=== PATIENT | male | born 1945 | race Caucasian/White ===

== ENCOUNTER 2019-03-19 10:33 | Inpatient (IN) | payer MEDICARE, MEDICAID ==
[2019-03-01 14:06] LABS: BASOPHILS # (AUTO) 0.1 X10'3 (0-0.2); BASOPHILS % (AUTO) 0.8 % (0-1); EOSINOPHILS # (AUTO) 0.4 X10'3 (0-0.9); HEMATOCRIT 38.8 % (42.0-52.0); HEMOGLOBIN 13.3 g/dl (14.0-17.9); LYMPHOCYTES # (AUTO) 2.1 X10'3 (1.1-4.8); MEAN CORPUSCULAR HEMOGLOBIN 28.8 PG (27.0-31.0); MEAN CORPUSCULAR HGB CONC 34.2 g/dL (33.0-36.5); MEAN CORPUSCULAR VOLUME 84.4 FL (78-98); MEAN PLATELET VOLUME 9.4 FL (7.4-10.4); MONOCYTES # (AUTO) 0.9 X10'3 (0-0.9); MONOCYTES % (AUTO) 9.9 % (2-12); NEUTROPHILS # (AUTO) 5.4 X10'3 (1.8-7.7); NEUTROPHILS % (AUTO) 61.3 % (42-75); PLATELET COUNT 172 X10'3 (140-440); RED CELL DISTRIBUTION WIDTH 14.1 % (11.5-14.5); WHITE BLOOD COUNT 8.9 X10'3 (4.5-11.0)
[2019-03-01 14:14] LABS: ALBUMIN 3.6 G/DL (3.4-5.0); ANION GAP 7 (8-16); BLOOD UREA NITROGEN 28 MG/DL (7-18); BUN/CREATININE RATIO 20.1 (5.4-32.0); CALCIUM 8.6 MG/DL (8.5-10.1); CHLORIDE 99 MMOL/L (99-107); CREATININE 1.39 MG/DL (0.60-1.10); GLUCOSE 389 MG/DL (70-104); MAGNESIUM 1.7 MG/DL (1.5-2.4); POTASSIUM 4.2 MMOL/L (3.5-5.1); SODIUM 132 MMOL/L (135-145); TOTAL CARBON DIOXIDE 25.6 MMOL/L (24-32); eGFR 50 ML/MIN
[~2019-03-19] VITALS: Ht 195.6 cm; Wt 108.5 kg
[2019-03-19] VITALS (12 sets, daily range): BP systolic 124–193; BP diastolic 68–105
[~2019-03-19 10:33] MED LIST: AMLO2.5T2 PO; ASPI-1264 PO; CLOP75TA35 PO; GABA-532 PO; HYDR12.5 PO; INSU100I25 SQ; INSU100V36 SQ; ISOS60TA4 PO; METO25TA6 PO; MULT-1085 PO; NITR0.4T51 SL; NORCO10T PO; OMEG1CAP13 PO; PRAV80TA PO; TRAZ-251 PO; VALS320T2 PO
[2019-03-19] MEDS ORDERED: diphenhydrAMINE 25mg capsule PO PRN (10:55)
[2019-03-19 11:15] LABS: BASOPHILS # (AUTO) 0.1 X10'3 (0-0.2); BASOPHILS % (AUTO) 0.8 % (0-1); EOSINOPHILS # (AUTO) 0.3 X10'3 (0-0.9); EOSINOPHILS % (AUTO) 3.7 % (0-6); HEMATOCRIT 39.8 % (42.0-52.0); HEMOGLOBIN 13.6 g/dl (14.0-17.9); LYMPHOCYTES # (AUTO) 1.8 X10'3 (1.1-4.8); LYMPHOCYTES % (AUTO) 24.4 % (21-51); MEAN CORPUSCULAR HEMOGLOBIN 28.8 PG (27.0-31.0); MEAN CORPUSCULAR HGB CONC 34.1 g/dL (33.0-36.5); MEAN CORPUSCULAR VOLUME 84.3 FL (78-98); MONOCYTES # (AUTO) 0.6 X10'3 (0-0.9); MONOCYTES % (AUTO) 8.4 % (2-12); NEUTROPHILS # (AUTO) 4.7 X10'3 (1.8-7.7); NEUTROPHILS % (AUTO) 62.7 % (42-75); PLATELET COUNT 159 X10'3 (140-440); RED BLOOD COUNT 4.73 X10'6 (4.70-6.10); RED CELL DISTRIBUTION WIDTH 14.1 % (11.5-14.5); WHITE BLOOD COUNT 7.5 X10'3 (4.5-11.0)
[2019-03-19] MEDS ORDERED: IBUP-2417 PO (11:28)
[2019-03-19] MEDS ORDERED: AMLO5TAB PO (11:28)
[2019-03-19] MEDS ORDERED: ROSU40TA PO (11:28)
[2019-03-19] MEDS ORDERED: INSU100I29 SQ (11:28)
[2019-03-19] MEDS ORDERED: APIX5TAB3 PO (11:28)
[2019-03-19] MEDS ORDERED: LIRA0.6P2 SUBCUT (11:28)
[2019-03-19] MEDS ORDERED: ZOLP5TAB2 PO (11:28)
[2019-03-19] MEDS ORDERED: AMIO200T61 PO (11:28)
[2019-03-19] MEDS ORDERED: GLIP5TAB13 PO (11:28)
[2019-03-19 11:38] LABS: ALBUMIN 3.6 G/DL (3.4-5.0); ANION GAP 10 (8-16); BLOOD UREA NITROGEN 18 MG/DL (7-18); BUN/CREATININE RATIO 12.9 (5.4-32.0); CALCIUM 8.5 MG/DL (8.5-10.1); CHLORIDE 103 MMOL/L (99-107); GLUCOSE 354 MG/DL (70-104); MAGNESIUM 2.1 MG/DL (1.5-2.4); POTASSIUM 4.2 MMOL/L (3.5-5.1); SODIUM 136 MMOL/L (135-145); TOTAL CARBON DIOXIDE 23.4 MMOL/L (24-32); eGFR 50 ML/MIN
[2019-03-19] MEDS ORDERED: midazolam 2 mg/2 ml injection ONE ×2 (11:43→12:17)
[2019-03-19] MEDS ORDERED: LIDOcaine 1% (10mg/ml)w/preservative injection 20ml MDV ONE (11:44)
[2019-03-19] MEDS ORDERED: heparin 1,000 UNITS/NS 500ml 500 ML ONE ×2 (11:44)
[2019-03-19] MEDS ORDERED: iohexol 350 MG/ML 50ML vial IV ONE (11:44)
[2019-03-19] MEDS ORDERED: fentaNYL/PF 50MCG/1 ML 2ML syringe ONE ×2 (11:44→12:30)
[2019-03-19] MEDS ORDERED: iohexol 350MG/ML 100ml bottle IV ONE (11:44)
[2019-03-19] MEDS: normal saline 1,000 ML IV SCH ×2 (11:57→20:55)
[2019-03-19] MEDS ORDERED: proCHLORperazine 10 MG/2 ml inj ONE (12:30)
[2019-03-19] MEDS ORDERED: HYDROcodone/acetaminophen 5mg/325mg tablet PO PRN (13:20)
[2019-03-19] MEDS ORDERED: HYDROcodone/acetaminophen 10/325mg tab PO PRN (13:20)
[2019-03-19] MEDS ORDERED: potassium Cl 2 mEq/ml inj IV ONE (14:00)
[2019-03-19] MEDS ORDERED: MESSAGE TO NURSING PO ONE ×3 (14:30)
[2019-03-19] MEDS ORDERED: insulin glargine (Lantus) pen - multi-dose SQ PRN (14:30)
[2019-03-19] MEDS ORDERED: dextrose 50%-water 50ml dispensing syringe IV PRN ×3 (14:30→15:25)
[2019-03-19] MEDS ORDERED: glucagon, human recombinant 1mg kit SUBCUT PRN (15:25)
[2019-03-19] MEDS ORDERED: MESSAGE TO PHARMACY PO ONE (15:25)
[2019-03-19] MEDS ORDERED: nitroGLYCERIN 0.4mg SUBLingual tab SL PRN (16:00)
[2019-03-19] MEDS ORDERED: zolpidem 5mg tablet PO PRN (16:00)
--- NOTE | 2019-03-19 17:00 | NUR ---
Problems reprioritized. Patient report given, questions answered & plan of care reviewed with Constantino RN, pt VSS, pt is in stable condition, R prosper menjivarg CDI, pt was transferred [facility] rm #[id number].
[2019-03-19] MEDS: normal saline 1000ml 1,000 ML IV SCH (18:00)
--- NOTE | 2019-03-19 18:15 | NUR ---
Please call [facility] unit at [phone] regarding pt Josefa, have questions regarding carotid study. Patient scheduled 1st case CABG on 03/20/19 Thank you, Jessica
--- NOTE | 2019-03-19 18:15 | NUR ---
Patient in room MED 308. I have received report from STEPHANIE Meeks and had the opportunity to ask questions and assume patient care.
[2019-03-19 18:36] LABS: HEMATOCRIT 40.6 % (42.0-52.0); HEMOGLOBIN 13.8 g/dl (14.0-17.9); MEAN CORPUSCULAR HEMOGLOBIN 28.7 PG (27.0-31.0); MEAN CORPUSCULAR VOLUME 84.3 FL (78-98); MEAN PLATELET VOLUME 9.2 FL (7.4-10.4); PLATELET COUNT 153 X10'3 (140-440); RED BLOOD COUNT 4.81 X10'6 (4.70-6.10); RED CELL DISTRIBUTION WIDTH 14.1 % (11.5-14.5)
[2019-03-19 18:49] LABS: PARTIAL THROMBOPLASTIN TIME 26 SECONDS (22-32)
--- NOTE | 2019-03-19 19:53 | NUR ---
Respiratory- patient Elisabeth Rivero needs PT eval and treat and ABGs. RT notification not popping up in interventions to send to you. Please evaluate patient. Thank you. STEPHANIE Lopez [phone]
[2019-03-19] MEDS ORDERED: metoprolol tartrate 25mg tablet PO SCH (20:00)
[2019-03-19] MEDS: metoprolol tartrate 12.5mg (1/2 tablet) PO SCH (20:25)
[2019-03-19] MEDS: gabapentin 300mg capsule PO SCH (20:26)
[2019-03-19] MEDS: mupirocin 2% ointment 22GM NS SCH (20:29)
[2019-03-19] MEDS: insulin Lispro (HumaLOG) vial - multi-dose SQ SCH ×2 (20:29→22:51)
[2019-03-19 20:45] LABS: CLARITY,URINE CLEAR (Clear); COLOR,URINE YELLOW (Yellow); GLUCOSE, URINE >=1000 mg/dl (Neg); KETONES,URINE NEGATIVE (Neg); LEUKOCYTE ESTERASE ,URINE NEGATIVE (Neg); NITRITES, URINE NEGATIVE (Neg); OCCULT BLOOD,URINE TRACE-INTACT (Neg); PROTEIN,URINE 30 mg/dl (Neg); UROBILINOGEN,URINE 0.2 E.U/dL (0.2-1.0)
[2019-03-19 20:47] LABS: UA COLLECTION TYPE VOIDED
[2019-03-19 20:54] LABS: BACTERIA,URINE NONE SEEN /HPF (Neg); MUCUS STRANDS NONE SEEN /LPF (Neg); RBC,URINE 0-2 /HPF (0-2); SQUAMOUS EPITHELIAL CELL,UR NONE SEEN /LPF (FEW); WBC,URINE 0-4 /HPF (0-4)
[2019-03-19 22:04] LABS: PLATELET FUNCTION (ADP) 168 SECONDS (63-104)
[2019-03-19 22:11] LABS: ABG BASE EXCESS -0.6 mmol/L (-2.0-3.0); ABG HCO3 22.9 mmol/L (22.0-26.0); ABG OXYGEN SATURATION 96.4 % (95-98); ABG PCO2 (T) 33.5 mmHg (35.0-45.0); ABG PH (T) 7.451 (7.350-7.450); ABG PO2 (T) 79.7 mmHg (83-108); ALLEN'S TEST Positive; FCOHb 0.5 % (0.5-1.5); FMetHb 0.3 % (0.3-1.12); FO2Hb 95.6 % (94-100); PATIENT TEMPERATURE 36.6; RESPIRATORY RATE (OBSERVED) 16 b/min; TOTAL HEMOGLOBIN 13.5 G/dl (14.0-17.9)
[2019-03-19] MEDS: insulin glargine (Lantus) pen - multi-dose SQ SCH (22:52)
[2019-03-20] VITALS (17 sets, daily range): BP systolic 93–152; BP diastolic 45–78
[2019-03-20 04:52] LABS: BASOPHILS # (AUTO) 0.1 X10'3 (0-0.2); BASOPHILS % (AUTO) 0.8 % (0-1); EOSINOPHILS # (AUTO) 0.3 X10'3 (0-0.9); HEMATOCRIT 36.2 % (42.0-52.0); HEMOGLOBIN 12.6 g/dl (14.0-17.9); LYMPHOCYTES # (AUTO) 1.7 X10'3 (1.1-4.8); LYMPHOCYTES % (AUTO) 21.4 % (21-51); MEAN CORPUSCULAR HEMOGLOBIN 29.2 PG (27.0-31.0); MEAN CORPUSCULAR HGB CONC 34.9 g/dL (33.0-36.5); MEAN CORPUSCULAR VOLUME 83.7 FL (78-98); MEAN PLATELET VOLUME 9.2 FL (7.4-10.4); MONOCYTES # (AUTO) 0.8 X10'3 (0-0.9); MONOCYTES % (AUTO) 10.8 % (2-12); NEUTROPHILS # (AUTO) 4.8 X10'3 (1.8-7.7); PLATELET COUNT 144 X10'3 (140-440); RED BLOOD COUNT 4.32 X10'6 (4.70-6.10); RED CELL DISTRIBUTION WIDTH 14.3 % (11.5-14.5); WHITE BLOOD COUNT 7.7 X10'3 (4.5-11.0)
[2019-03-20] MEDS ORDERED: ROPIVAcaine 0.5% (5mg/ml) 30ml vial ONE (05:04)
[2019-03-20] MEDS ORDERED: ceFAZolin 1000mg inj ONE ×3 (05:10→11:25)
[2019-03-20] MEDS ORDERED: LIDOcaine 1% 30ml preserv. free vial ONE (05:10)
[2019-03-20] MEDS ORDERED: epiNEPHrine 1 mg/ml inj ONE (05:10)
[2019-03-20 05:11] LABS: ALANINE AMINOTRANSFERASE 39 U/L (12-78); ALBUMIN 3.1 G/DL (3.4-5.0); ALBUMIN/GLOBULIN RATIO 0.8 (1.1-1.5); ALKALINE PHOSPHATASE 51 IU/L (46-116); ANION GAP 11 (8-16); ASPARTATE AMINO TRANSFERASE 22 U/L (10-37); BILIRUBIN,TOTAL 0.6 MG/DL (0.1-1.0); BLOOD UREA NITROGEN 17 MG/DL (7-18); CALCIUM 8.2 MG/DL (8.5-10.1); CHLORIDE 103 MMOL/L (99-107); GLUCOSE 431 MG/DL (70-104); POTASSIUM 3.8 MMOL/L (3.5-5.1); SODIUM 136 MMOL/L (135-145); TOTAL PROTEIN 6.8 G/DL (6.4-8.2); eGFR 40 ML/MIN
[2019-03-20] MEDS ORDERED: BUPIVAcaine 0.5% inj/PF 30 ML ONE (05:11)
[2019-03-20] MEDS ORDERED: cefazolin/dext.iso 2gm/100ml 100 ML IV ONE (05:30)
[2019-03-20] MEDS ORDERED: gabapentin 400mg capsule PO ONE (05:30)
[2019-03-20] MEDS ORDERED: insulin regular, human 100 UNIT in normal saline 100ml IV soln 100 ML IV SCH ×2 (05:30)
[2019-03-20] MEDS ORDERED: NUT.TX.IMPAIRED DIGEST FXN (Ensure Clear) 237 ML PO ONE (05:30)
--- NOTE | 2019-03-20 05:34 | NUR ---
Critical Blood Glucose accucheck of 418, notified Dr. Liao and Dr. Liao stated that anesthesia will treat this morning. No nursing orders given for this patient with regards to blood glucose. Verified with Dr. Liao regarding antibiotics for this patient. He stated that he does not order Vancomycin 1.5 grams. Will pass this information on to OR staff.
[2019-03-20] MEDS: mupirocin 2% ointment 22GM NS SCH ×2 (05:48→20:35)
[2019-03-20] MEDS ORDERED: famotidine 20mg tablet PO ONE (06:00)
[2019-03-20] MEDS ORDERED: LORazepam 2 mg/ml vial IV ONE (06:00)
[2019-03-20] MEDS ORDERED: insulin regular, human 10 units/0.1 ml syringe IV STA (06:15)
--- NOTE | 2019-03-20 06:15 | NUR ---
CALLED ANESTHESIOLOGIST, DR. DIOR REGARDING PATIENT'S BLOOD GLUCOSE OF 418. RECEIVED ORDERS TO GIVE 10 UNITS REGULAR INSULIN IV NOW.
--- NOTE | 2019-03-20 06:30 | NUR ---
Pt. headed to OR
--- NOTE | 2019-03-20 06:33 | NUR ---
Problems reprioritized. Patient report given, questions answered & plan of care reviewed with STEPHANIE Meeks.
[2019-03-20] MEDS ORDERED: SUFENTANIL CITRATE 50 MCG/ML 2ml ampule IV ONE (06:53)
[2019-03-20] MEDS ORDERED: midazolam 2 mg/2 ml injection ONE (06:53)
[2019-03-20] MEDS: normal saline 1,000 ML IV SCH (06:55)
[2019-03-20] MEDS ORDERED: nitroGLYCERIN in D5W 50mg/250ml (Tridil) infusion IV ONE (07:05)
[2019-03-20] MEDS ORDERED: DOPamine/D5W 400mg/250ml bag IV ONE ×2 (07:05)
[2019-03-20] MEDS ORDERED: protamine sulf. 10mg/ml inj. IV ONE (07:05)
[2019-03-20] MEDS ORDERED: isoflurane 100ml inhalation liquid IH ONE (07:05)
[2019-03-20 07:50] LABS: ABG HCO3 21.2 mmol/L (22.0-26.0); ABG OXYGEN SATURATION 99.1 % (95-98); ABG PCO2 43.3 mmHg (35.0-45.0); ABG PH 7.307 (7.350-7.450); ABG PO2 335.2 mmHg (60.0-100.0); CL (ABG) 104 mmol/L (99-107); FCOHb 0.6 % (0.5-1.5); FMetHb 0.3 % (0.3-1.12); FO2Hb 98.2 % (94-100); GLUCOSE (ABG) 258 mg/dl (70-104); IONIZED CA (ABG) 1.16 mmol/L (1.03-1.32); NA (ABG) 137 mmol/L (135-145); TOTAL HEMOGLOBIN 12.6 G/dl (14.0-17.9)
[2019-03-20] MEDS ORDERED: INSULIN DEGLUDEC 1 UNIT SQ SCH (08:00)
[2019-03-20] MEDS ORDERED: heparin 1,000 units/ml 10ml inj ONE (08:00)
[2019-03-20] MEDS: gabapentin 300mg capsule PO SCH ×2 (08:00→13:00)
[2019-03-20] MEDS ORDERED: aminocaproic acid 250 MG/1 ML inj. ONE (08:00)
[2019-03-20] MEDS: multivitamins, therapeutics tablet PO SCH (08:00)
[2019-03-20] MEDS ORDERED: atorvastatin 20mg tablet PO SCH (08:00)
[2019-03-20] MEDS: HYDROchlorothiazide 12.5mg capsule PO SCH (08:00)
[2019-03-20] MEDS ORDERED: NORepinephrine 1 mg/ml inj IV ONE (08:00)
[2019-03-20] MEDS ORDERED: amLODIPine 5mg tablet PO SCH (08:00)
[2019-03-20] MEDS ORDERED: MAGNESIUM SULFATE 4 MEQ/ML (5gm/10ml) injection ONE (08:00)
[2019-03-20] MEDS: metoprolol tartrate 12.5mg (1/2 tablet) PO SCH (08:00)
[2019-03-20] MEDS ORDERED: heparin 10,000 units/1 ML INJ ONE ×2 (08:00)
[2019-03-20] MEDS ORDERED: glipizide 5mg tablet PO SCH (08:00)
[2019-03-20] MEDS ORDERED: albumin (human) 25% 100 ML IV solution IV ONE (08:00)
[2019-03-20] MEDS ORDERED: calcium chloride 100 MG/1 ML inj IV ONE (08:00)
[2019-03-20] MEDS ORDERED: amiodarone 200mg tablet PO SCH (08:00)
[2019-03-20] MEDS ORDERED: papaverine 30 mg/ml 2ml inj. ONE (08:00)
[2019-03-20] MEDS ORDERED: methylPREDNISolone sod. succ. 500mg inj ONE (08:00)
[2019-03-20] MEDS ORDERED: sodium bicarbonate (8.4%) 1 mEq/ml syringe ONE (08:00)
[2019-03-20] MEDS ORDERED: LIDOcaine 2% (20 mg/ml) 5ml cardiac syringe ONE (08:00)
[2019-03-20] MEDS ORDERED: phenylephrine 10mg/ml inj. ONE (08:00)
[2019-03-20] MEDS ORDERED: ipratropium/albuterol 3ml nebule IH PRN (08:50)
[2019-03-20] MEDS ORDERED: propofol inj 20 ML IV ONE (08:51)
[2019-03-20] MEDS ORDERED: LIDOcaine 2% (20mg/ml) 5ml vial ONE (08:51)
[2019-03-20] MEDS ORDERED: rocuronium 10mg/ml inj IV ONE (08:51)
[2019-03-20 08:55] LABS: ABG BASE EXCESS -4.3 mmol/L (-2.0-3.0); ABG HCO3 20.8 mmol/L (22.0-26.0); ABG OXYGEN SATURATION 99.1 % (95-98); ABG PCO2 37.8 mmHg (35.0-45.0); ABG PH 7.358 (7.350-7.450); CL (ABG) 102 mmol/L (99-107); FCOHb 0.3 % (0.5-1.5); FO2Hb 98.8 % (94-100); GLUCOSE (ABG) 195 mg/dl (70-104); IONIZED CA (ABG) 1.04 mmol/L (1.03-1.32); K (ABG) 4.6 mmol/L (3.3-5.1); NA (ABG) 135 mmol/L (135-145); TOTAL HEMOGLOBIN 9.1 G/dl (14.0-17.9)
--- NOTE | 2019-03-20 09:21 | NUR ---
DM consult: Pt with hx T2DM with A1c 11.4. Pt s/p CABG x 3 today. Pt will need protein and DM educations with referral to outpatient DM class once stable prior to discharge. Pt admit with atherosclerotic CAD. Will continue to follow. Recommendations: 1) Diet advancement to CHO controlled/NCS as medically indicated 2) Protein and DM educations prior to discharge once stable 3) Monitor need for ONS with diet advancement 4) Bowel care 5) Wt per rx Addendum: 03/20/19 at [address] Amended: Links added.
[2019-03-20 09:22] LABS: ABG BASE EXCESS VENOUS -0.6 mmol/L; ABG HCO3 VENOUS 24.3 mmol/L; ABG PCO2 VENOUS 40.8 mmHg; ABG PO2 VENOUS 53.1 mmHg; CL (ABG) 102 mmol/L (99-107); FCOHb VENOUS 0.9 %; FHHb VENOUS 12.1 %; GLUCOSE (ABG) 191 mg/dl (70-104); IONIZED CA (ABG) 1.03 mmol/L (1.03-1.32); K (ABG) 3.9 mmol/L (3.3-5.1); NA (ABG) 137 mmol/L (135-145); TOTAL HEMOGLOBIN 8.9 G/dl (14.0-17.9)
[2019-03-20 09:41] LABS: ABG BASE EXCESS -0.5 mmol/L (-2.0-3.0); ABG HCO3 25.6 mmol/L (22.0-26.0); ABG OXYGEN SATURATION 99.2 % (95-98); ABG PCO2 49.3 mmHg (35.0-45.0); ABG PH 7.334 (7.350-7.450); ABG PO2 379.9 mmHg (60.0-100.0); CL (ABG) 104 mmol/L (99-107); FCOHb 0.4 % (0.5-1.5); FO2Hb 98.8 % (94-100); GLUCOSE (ABG) 193 mg/dl (70-104); IONIZED CA (ABG) 1.07 mmol/L (1.03-1.32); K (ABG) 4.5 mmol/L (3.3-5.1); NA (ABG) 137 mmol/L (135-145); TOTAL HEMOGLOBIN 9.2 G/dl (14.0-17.9)
[2019-03-20] MEDS ORDERED: MESSAGE TO NURSING PO ONE (10:00)
[2019-03-20 10:15] LABS: ABG PCO2 47.5 mmHg (35.0-45.0); ABG PH 7.322 (7.350-7.450); ABG PO2 423.3 mmHg (60.0-100.0); CL (ABG) 106 mmol/L (99-107); FCOHb 0.4 % (0.5-1.5); FMetHb 0.6 % (0.3-1.12); GLUCOSE (ABG) 187 mg/dl (70-104); IONIZED CA (ABG) 0.98 mmol/L (1.03-1.32); K (ABG) 3.6 mmol/L (3.3-5.1); NA (ABG) 137 mmol/L (135-145); TOTAL HEMOGLOBIN 8.4 G/dl (14.0-17.9)
[2019-03-20 10:41] LABS: ABG BASE EXCESS -0.2 mmol/L (-2.0-3.0); ABG HCO3 23.3 mmol/L (22.0-26.0); ABG PCO2 32.9 mmHg (35.0-45.0); ABG PH 7.468 (7.350-7.450); ABG PO2 411.8 mmHg (60.0-100.0); CL (ABG) 104 mmol/L (99-107); FCOHb 0.6 % (0.5-1.5); FMetHb 0.6 % (0.3-1.12); FO2Hb 97.8 % (94-100); GLUCOSE (ABG) 172 mg/dl (70-104); IONIZED CA (ABG) 1.25 mmol/L (1.03-1.32); K (ABG) 3.9 mmol/L (3.3-5.1); NA (ABG) 135 mmol/L (135-145); TOTAL HEMOGLOBIN 7.9 G/dl (14.0-17.9)
[2019-03-20] MEDS: normal saline 1000ml 1,000 ML IV SCH (11:25)
[2019-03-20 11:26] LABS: ABG BASE EXCESS VENOUS -2.7 mmol/L; ABG HCO3 VENOUS 22.5 mmol/L; ABG PCO2 VENOUS 40.2 mmHg; ABG PO2 VENOUS 40.6 mmHg; CL (ABG) 104 mmol/L (99-107); FCOHb VENOUS 0.7 %; FHHb VENOUS 24.7 %; FMetHb VENOUS 0.7 %; FO2Hb VENOUS 73.9 %; GLUCOSE (ABG) 169 mg/dl (70-104); K (ABG) 3.8 mmol/L (3.3-5.1); NA (ABG) 137 mmol/L (135-145)
[2019-03-20] MEDS ORDERED: niCARDipine-NS 40mg/200ml IVPB 200 ML IV PRN (11:51)
[2019-03-20] MEDS ORDERED: epiNEPHrine inj 5 MG in normal saline 250ml IV soln 250 ML IV PRN (11:51)
[2019-03-20] MEDS ORDERED: NORepinephrine 8mg/ 250ml NS 250 ML IV PRN (11:51)
[2019-03-20] MEDS ORDERED: nitroGLYCERIN-Tridil 50MG/D5W 250 ML IV SCH (11:51)
[2019-03-20] MEDS ORDERED: dextrose 50%-water 50ml dispensing syringe IV PRN (11:55)
[2019-03-20] MEDS ORDERED: magnesium hydroxide 30ml (MOM) UD suspension PO PRN (11:55)
[2019-03-20] MEDS ORDERED: morphine 4 MG/ML inj SYRINge IV PRN (11:55)
[2019-03-20] MEDS ORDERED: magnesium 4gm in 100ml NS 100 ML IV PRN (11:55)
[2019-03-20] MEDS ORDERED: magnesium 2GM in 50ml NS 50 ML IV PRN (11:55)
[2019-03-20] MEDS ORDERED: acetaminophen 325mg tablet PO PRN (11:55)
[2019-03-20] MEDS ORDERED: sodium phosphate inj. 30 MMOL in dextrose 5%-water 250 ML IV PRN (11:55)
[2019-03-20] MEDS ORDERED: metoclopramide 5 mg/ml inj IV PRN (11:55)
[2019-03-20] MEDS ORDERED: Neutra Phos packet PO PRN (11:55)
[2019-03-20] MEDS ORDERED: sodium phosphate inj. 15 MMOL in dextrose 5%-water 150 ML IV PRN (11:55)
[2019-03-20] MEDS ORDERED: ondansetron/PF 4mg/2ml inj IV PRN (11:55)
[2019-03-20] MEDS ORDERED: acetaminophen 1,000mg/100ml IV 100 ML IV ONE (11:59)
[2019-03-20] MEDS ORDERED: ESOMEPRAZOLE 40 MG VIAL IV ONE (12:01)
[2019-03-20] MEDS: sodium chloride 0.45% 1,000 ML IV SCH (12:30)
[2019-03-20] MEDS: albumin (Human) 5% 250ml 250 ML IV PRN ×5 (12:30→20:56)
[2019-03-20 12:35] LABS: ABG HCO3 24.6 mmol/L (22.0-26.0); ABG OXYGEN SATURATION 97.3 % (95-98); ABG PCO2 (T) 42.8 mmHg (35.0-45.0); ABG PH (T) 7.373 (7.350-7.450); ABG PO2 (T) 109.4 mmHg (83-108); FCOHb 0.3 % (0.5-1.5); FMetHb 0.2 % (0.3-1.12); FO2Hb 96.8 % (94-100); MINUTE VOLUME 11 L/min; PATIENT TEMPERATURE 35.9; PEEP 5 cm H2O; RESPIRATORY RATE 12 b/min; TIDAL VOLUME 650 mL; TOTAL HEMOGLOBIN 11.2 G/dl (14.0-17.9)
[2019-03-20 12:39] LABS: BASOPHILS % (AUTO) 0.2 % (0-1); EOSINOPHILS % (AUTO) 0.3 % (0-6); HEMATOCRIT 30.1 % (42.0-52.0); HEMOGLOBIN 10.5 g/dl (14.0-17.9); LYMPHOCYTES # (AUTO) 0.9 X10'3 (1.1-4.8); LYMPHOCYTES % (AUTO) 6.2 % (21-51); MEAN CORPUSCULAR HGB CONC 34.9 g/dL (33.0-36.5); MEAN CORPUSCULAR VOLUME 83.1 FL (78-98); MEAN PLATELET VOLUME 8.3 FL (7.4-10.4); MONOCYTES # (AUTO) 1.3 X10'3 (0-0.9); MONOCYTES % (AUTO) 8.9 % (2-12); NEUTROPHILS # (AUTO) 12.5 X10'3 (1.8-7.7); NEUTROPHILS % (AUTO) 84.4 % (42-75); PLATELET COUNT 154 X10'3 (140-440); RED BLOOD COUNT 3.62 X10'6 (4.70-6.10); RED CELL DISTRIBUTION WIDTH 14.1 % (11.5-14.5); WHITE BLOOD COUNT 14.8 X10'3 (4.5-11.0)
[2019-03-20 12:48] LABS: PARTIAL THROMBOPLASTIN TIME 30 SECONDS (22-32)
[2019-03-20 12:49] LABS: ALANINE AMINOTRANSFERASE 143 U/L (12-78); ALBUMIN 2.5 G/DL (3.4-5.0); ALKALINE PHOSPHATASE 44 IU/L (46-116); ANION GAP 8 (8-16); ASPARTATE AMINO TRANSFERASE 297 U/L (10-37); BILIRUBIN,TOTAL 0.7 MG/DL (0.1-1.0); BLOOD UREA NITROGEN 13 MG/DL (7-18); BUN/CREATININE RATIO 9.8 (5.4-32.0); CALCIUM 7.3 MG/DL (8.5-10.1); CHLORIDE 111 MMOL/L (99-107); CREATININE 1.32 MG/DL (0.60-1.10); GLUCOSE 159 MG/DL (70-104); MAGNESIUM 3.2 MG/DL (1.5-2.4); PHOSPHORUS 1.6 MG/DL (2.3-4.5); SODIUM 144 MMOL/L (135-145); TOTAL CARBON DIOXIDE 25.2 MMOL/L (24-32); TOTAL PROTEIN 4.9 G/DL (6.4-8.2); eGFR 53 ML/MIN
[2019-03-20 12:50] LABS: POTASSIUM 3.7 MMOL/L (3.5-5.1)
[2019-03-20] MEDS: insulin Lispro (HumaLOG) vial - multi-dose SQ SCH ×2 (13:00→18:00)
[2019-03-20] MEDS ORDERED: gabapentin 300mg capsule PO SCH (13:00)
[2019-03-20] MEDS: potassium Cl 20mEq/100mL bag 100 ML IV PRN ×5 (13:34→21:44)
[2019-03-20] MEDS: cefazolin/dext.iso 2gm/100ml 100 ML IV SCH (16:15)
--- NOTE | 2019-03-20 18:20 | NUR ---
Patient in room ICU 2042. I have received report from Annie BROWN and had the opportunity to ask questions and assume patient care.
[2019-03-20 19:00] LABS: ANION GAP 9 (8-16); BLOOD UREA NITROGEN 15 MG/DL (7-18); CALCIUM 6.9 MG/DL (8.5-10.1); CHLORIDE 114 MMOL/L (99-107); CREATININE 1.25 MG/DL (0.60-1.10); GLUCOSE 145 MG/DL (70-104); MAGNESIUM 2.7 MG/DL (1.5-2.4); PHOSPHORUS 2.7 MG/DL (2.3-4.5); POTASSIUM 3.5 MMOL/L (3.5-5.1); SODIUM 145 MMOL/L (135-145); TOTAL CARBON DIOXIDE 22.5 MMOL/L (24-32); eGFR 57 ML/MIN
[2019-03-20 19:02] LABS: BASOPHILS % (AUTO) 0.1 % (0-1); EOSINOPHILS % (AUTO) 0 % (0-6); HEMATOCRIT 25.7 % (42.0-52.0); LYMPHOCYTES # (AUTO) 0.4 X10'3 (1.1-4.8); LYMPHOCYTES % (AUTO) 3.9 % (21-51); MEAN CORPUSCULAR HEMOGLOBIN 29.3 PG (27.0-31.0); MEAN CORPUSCULAR HGB CONC 35.1 g/dL (33.0-36.5); MEAN CORPUSCULAR VOLUME 83.6 FL (78-98); MEAN PLATELET VOLUME 8.8 FL (7.4-10.4); MONOCYTES # (AUTO) 0.6 X10'3 (0-0.9); MONOCYTES % (AUTO) 5.3 % (2-12); NEUTROPHILS % (AUTO) 90.7 % (42-75); PLATELET COUNT 117 X10'3 (140-440); RED BLOOD COUNT 3.07 X10'6 (4.70-6.10); RED CELL DISTRIBUTION WIDTH 14.1 % (11.5-14.5); WHITE BLOOD COUNT 11.1 X10'3 (4.5-11.0)
[2019-03-20] MEDS: insulin regular, human inj. 100 UNITS in normal saline 100ml IV soln 100 ML IV SCH ×2 (19:25)
[2019-03-20] MEDS: gabapentin 400mg capsule PO SCH (19:42)
[2019-03-20] MEDS: morphine 4 MG/ML inj SYRINge IV PRN ×2 (19:42→22:51)
[2019-03-20] MEDS: docusate sod 100mg capsule PO SCH (20:00)
--- NOTE | 2019-03-20 20:45 | NUR ---
BP and CI below desired range. Spoke with Dr Liao with current update. Advised to give an Albumin. Pt RR on vent reduced, pt is awake and following commands, will be doing SBT in hopes he is ready to extubate.
[2019-03-20] MEDS: insulin glargine (Lantus) pen - multi-dose SQ SCH (21:00)
[2019-03-20 22:11] LABS: ABG BASE EXCESS -3.2 mmol/L (-2.0-3.0); ABG OXYGEN SATURATION 97.2 % (95-98); ABG PCO2 (T) 29.3 mmHg (35.0-45.0); ABG PH (T) 7.452 (7.350-7.450); ABG PO2 (T) 107.6 mmHg (83-108); FCOHb 0.2 % (0.5-1.5); FMetHb 0.3 % (0.3-1.12); FO2Hb 96.7 % (94-100); MINUTE VOLUME 12 L/min; PATIENT TEMPERATURE 37.5; PEEP 5 cm H2O; RESPIRATORY RATE (OBSERVED) 12 b/min; TOTAL HEMOGLOBIN 8.8 G/dl (14.0-17.9)
[2019-03-21] VITALS (23 sets, daily range): BP systolic 97–129; BP diastolic 44–69
[2019-03-21] MEDS: cefazolin/dext.iso 2gm/100ml 100 ML IV SCH ×3 (00:18→16:46)
[2019-03-21 03:55] LABS: BASOPHILS % (AUTO) 0.1 % (0-1); EOSINOPHILS % (AUTO) 0 % (0-6); HEMATOCRIT 23.7 % (42.0-52.0); HEMOGLOBIN 8.2 g/dl (14.0-17.9); LYMPHOCYTES # (AUTO) 0.7 X10'3 (1.1-4.8); LYMPHOCYTES % (AUTO) 5.7 % (21-51); MEAN CORPUSCULAR HEMOGLOBIN 29.1 PG (27.0-31.0); MEAN CORPUSCULAR HGB CONC 34.5 g/dL (33.0-36.5); MEAN CORPUSCULAR VOLUME 84.4 FL (78-98); MEAN PLATELET VOLUME 9.1 FL (7.4-10.4); MONOCYTES # (AUTO) 0.9 X10'3 (0-0.9); MONOCYTES % (AUTO) 7.4 % (2-12); NEUTROPHILS # (AUTO) 10.9 X10'3 (1.8-7.7); NEUTROPHILS % (AUTO) 86.8 % (42-75); PLATELET COUNT 102 X10'3 (140-440); RED CELL DISTRIBUTION WIDTH 14.1 % (11.5-14.5); WHITE BLOOD COUNT 12.6 X10'3 (4.5-11.0)
[2019-03-21 04:05] LABS: PARTIAL THROMBOPLASTIN TIME 30 SECONDS (22-32)
[2019-03-21 04:10] LABS: ALANINE AMINOTRANSFERASE 96 U/L (12-78); ALBUMIN/GLOBULIN RATIO 1.4 (1.1-1.5); ALKALINE PHOSPHATASE 36 IU/L (46-116); ANION GAP 9 (8-16); ASPARTATE AMINO TRANSFERASE 158 U/L (10-37); BILIRUBIN,TOTAL 0.3 MG/DL (0.1-1.0); BLOOD UREA NITROGEN 16 MG/DL (7-18); BUN/CREATININE RATIO 12.4 (5.4-32.0); CALCIUM 7.1 MG/DL (8.5-10.1); CHLORIDE 114 MMOL/L (99-107); CREATININE 1.29 MG/DL (0.60-1.10); GLUCOSE 114 MG/DL (70-104); MAGNESIUM 2.7 MG/DL (1.5-2.4); PHOSPHORUS 3.7 MG/DL (2.3-4.5); SODIUM 145 MMOL/L (135-145); TOTAL CARBON DIOXIDE 22.5 MMOL/L (24-32); TOTAL PROTEIN 5.2 G/DL (6.4-8.2); eGFR 55 ML/MIN
[2019-03-21] MEDS: potassium Cl 20mEq/100mL bag 100 ML IV PRN ×2 (04:36→05:37)
--- NOTE | 2019-03-21 05:38 | NUR ---
Spoke with Dr Liao via telephone regarding Hct below 24%, Pt currently at 23.7. Update given, no blood products ordered at this time.
--- NOTE | 2019-03-21 06:28 | NUR ---
Problems reprioritized. Patient report given, questions answered & plan of care reviewed with Amparo BROWN.
--- NOTE | 2019-03-21 06:30 | NUR ---
Patient in room ICU 2042. I have received report from mold shifter RN and had the opportunity to ask questions and assume patient care.
[2019-03-21] MEDS: normal saline 1000ml 1,000 ML IV SCH (07:25)
[2019-03-21] MEDS: gabapentin 400mg capsule PO SCH ×2 (07:38→20:18)
[2019-03-21] MEDS: aspirin 325mg tablet, delayed-release (Ecotrin) PO SCH (07:38)
[2019-03-21] MEDS: multivitamins, therapeutics tablet PO SCH (07:42)
[2019-03-21] MEDS: atorvastatin 10mg tablet PO SCH (07:43)
[2019-03-21] MEDS: docusate sod 100mg capsule PO SCH ×2 (07:43→20:18)
[2019-03-21] MEDS: HYDROchlorothiazide 12.5mg capsule PO SCH (08:00)
[2019-03-21] MEDS ORDERED: metoprolol tartrate 12.5mg (1/2 tablet) PO SCH (08:00)
[2019-03-21] MEDS: mupirocin 2% ointment 22GM NS SCH ×2 (08:00→20:00)
[2019-03-21] MEDS: HYDROcodone/acetaminophen 10/325mg tab PO PRN ×3 (09:01→20:20)
[2019-03-21 09:26] LABS: ACTIVATED CLOTTING TIME 116 SEC (101-148)
[2019-03-21 09:26] LABS: ACT @ 1.70 U 364 SEC (193-297); ACT @ 2.84 U 511 SEC (260-420); BASELINE ACT 169 SEC (101-148); PATIENT WEIGHT 95.0k KG
--- NOTE | 2019-03-21 09:30 | NUR ---
MADELYN Mckay here, updated on labs, CO/CI, and general patient status. pacer turned off, escape junctional rythym noted in 30's, pacer turned back on AV paced at 80.
--- NOTE | 2019-03-21 10:30 | NUR ---
sitting up in chair tolerating well, Dr Liao at bedside and updated on patients status, labs, CO/CI, meds, and low urine output, low PA filling pressures and low BP, Dr Liao states no fluids at this time for low BPor low urine output. Will continue to monitor fluid status.
[2019-03-21] MEDS: insulin regular, human inj. 100 UNITS in normal saline 100ml IV soln 100 ML IV SCH ×2 (11:55)
--- NOTE | 2019-03-21 12:00 | NUR ---
[employer] dc without problems, a line to right rad dc without problems, pressure held for both until hemostasis achieved.
[2019-03-21] MEDS: insulin Lispro (HumaLOG) vial - multi-dose SQ SCH ×6 (13:58→23:15)
[2019-03-21] MEDS: insulin glargine (Lantus) pen - multi-dose SQ SCH (13:59)
[2019-03-21] MEDS: potassium Cl 20 mEq SR tablet PO PRN (15:08)
--- NOTE | 2019-03-21 19:00 | NUR ---
Patient in room ICU 2042. I have received report from STEPHANIE Christensen and had the opportunity to ask questions and assume patient care.
--- NOTE | 2019-03-21 19:00 | NUR ---
Dr. Liao called in regards to Patient's blood sugar of 301. Patient is currently on the insulin gtt and has already received first lantus dose by day shift RN. Per protocol, we are to turn insulin gtt off. However due to patient's blood sugar, I will keep the gtt on for now and will speak to Dr. Liao about what he wishes to do at this point. I have left a voicemail and am now awaiting a call back. Charge nurse STEPHANIE Whittaker is aware that the insulin gtt is still on and that I am awaiting Dr. Liao's call.
--- NOTE | 2019-03-21 20:30 | NUR ---
I called Dr. Liao again as I have not received a call back. I left another voicemail and Charge nurse STEPHANIE Whittaker is aware that I still have not received a response at this time. Insulin gtt remains on as blood sugar is now up to 339. Awaiting call back from .
[2019-03-22] VITALS (23 sets, daily range): BP systolic 93–130; BP diastolic 54–82
--- NOTE | 2019-03-22 | NUR ---
Woody JOSHI's number was obtained from mill house supervisor due to no response from Dr. Liao. Will attempt to call him about Patient's blood sugar.
[2019-03-22] MEDS: insulin Lispro (HumaLOG) vial - multi-dose SQ SCH ×6 (00:19→21:39)
--- NOTE | 2019-03-22 00:31 | NUR ---
Spoke to Woody JOSHI regarding patient's blood sugar as I was unable to get in touch with Dr. Carr. He was informed that our protocol calls for us to take patient off of insulin gtt when patient has received lantus, however, I have kept him on the insulin gtt due to high blood sugars. He is aware that the last blood sugar was 262 and that the current rate is 7.7. PA asked that I continue to run the insulin gtt at this time. Order was put in as a miscellaneous nursing order. He was also made aware that the patent did not have any urine output for 2 hours, at which point I bladder scanned him and found that he had 173mL in his bladder. I then irrigated his sloan catheter and began to get flow, however, there was blood in his urine. No clots were noted after the irrigation. PA asked that I call him back if the bleeding worsens. Will continue to monitor.
[2019-03-22] MEDS: cefazolin/dext.iso 2gm/100ml 100 ML IV SCH (00:33)
[2019-03-22] MEDS: insulin regular, human inj. 100 UNITS in normal saline 100ml IV soln 100 ML IV SCH ×2 (01:30)
[2019-03-22] MEDS: normal saline 1000ml 1,000 ML IV SCH ×2 (03:25→23:25)
[2019-03-22 03:51] LABS: BASOPHILS % (AUTO) 0.2 % (0-1); EOSINOPHILS % (AUTO) 0 % (0-6); HEMATOCRIT 23.5 % (42.0-52.0); HEMOGLOBIN 7.9 g/dl (14.0-17.9); LYMPHOCYTES # (AUTO) 1.4 X10'3 (1.1-4.8); LYMPHOCYTES % (AUTO) 9.9 % (21-51); MEAN CORPUSCULAR HEMOGLOBIN 28.8 PG (27.0-31.0); MEAN CORPUSCULAR HGB CONC 33.8 g/dL (33.0-36.5); MEAN CORPUSCULAR VOLUME 85.2 FL (78-98); MEAN PLATELET VOLUME 9.4 FL (7.4-10.4); MONOCYTES # (AUTO) 1.5 X10'3 (0-0.9); MONOCYTES % (AUTO) 10.7 % (2-12); NEUTROPHILS # (AUTO) 10.9 X10'3 (1.8-7.7); NEUTROPHILS % (AUTO) 79.2 % (42-75); PLATELET COUNT 102 X10'3 (140-440); RED BLOOD COUNT 2.76 X10'6 (4.70-6.10); RED CELL DISTRIBUTION WIDTH 14.7 % (11.5-14.5); WHITE BLOOD COUNT 13.8 X10'3 (4.5-11.0)
[2019-03-22 04:01] LABS: ALBUMIN 2.8 G/DL (3.4-5.0); ANION GAP 10 (8-16); BLOOD UREA NITROGEN 30 MG/DL (7-18); BUN/CREATININE RATIO 21.3 (5.4-32.0); CALCIUM 7.2 MG/DL (8.5-10.1); CHLORIDE 107 MMOL/L (99-107); CREATININE 1.41 MG/DL (0.60-1.10); GLUCOSE 194 MG/DL (70-104); MAGNESIUM 2.6 MG/DL (1.5-2.4); PHOSPHORUS 2.7 MG/DL (2.3-4.5); POTASSIUM 4.4 MMOL/L (3.5-5.1); SODIUM 139 MMOL/L (135-145); TOTAL CARBON DIOXIDE 22.4 MMOL/L (24-32); eGFR 50 ML/MIN
--- NOTE | 2019-03-22 06:32 | NUR ---
Problems reprioritized. Patient report given, questions answered & plan of care reviewed with STEPHANIE Calderon.
[2019-03-22] MEDS: aspirin 325mg tablet, delayed-release (Ecotrin) PO SCH (08:14)
[2019-03-22] MEDS: pantoprazole 40mg Tablet.DR PO SCH (08:14)
[2019-03-22] MEDS: gabapentin 400mg capsule PO SCH ×2 (08:14→20:11)
[2019-03-22] MEDS: docusate sod 100mg capsule PO SCH ×2 (08:14→20:11)
[2019-03-22] MEDS: atorvastatin 10mg tablet PO SCH (08:15)
[2019-03-22] MEDS: sodium chloride 0.45% 1,000 ML IV SCH (08:15)
[2019-03-22] MEDS: multivitamins, therapeutics tablet PO SCH (08:15)
[2019-03-22] MEDS: mupirocin 2% ointment 22GM NS SCH (08:49)
[2019-03-22] MEDS: HYDROcodone/acetaminophen 10/325mg tab PO PRN ×3 (08:51→20:12)
[2019-03-22] MEDS ORDERED: furosemide 40mg/4ml inj IV ONE (09:55)
[2019-03-22] MEDS: furosemide 40mg/4ml inj IV SCH (11:00)
[2019-03-22] MEDS: potassium Cl 20 mEq SR tablet PO PRN (13:59)
[2019-03-22] MEDS: insulin glargine (Lantus) pen - multi-dose SQ SCH (14:08)
[2019-03-22 17:09] LABS: HEMATOCRIT 23.6 % (42.0-52.0); HEMOGLOBIN 7.9 g/dl (14.0-17.9); MEAN CORPUSCULAR HEMOGLOBIN 28.6 PG (27.0-31.0); MEAN CORPUSCULAR HGB CONC 33.6 g/dL (33.0-36.5); MEAN CORPUSCULAR VOLUME 85.1 FL (78-98); MEAN PLATELET VOLUME 9.8 FL (7.4-10.4); PLATELET COUNT 99 X10'3 (140-440); RED BLOOD COUNT 2.78 X10'6 (4.70-6.10); WHITE BLOOD COUNT 14.9 X10'3 (4.5-11.0)
--- NOTE | 2019-03-22 18:30 | NUR ---
Patient in room ICU 2042. I have received report from STEPHANIE Calderon and had the opportunity to ask questions and assume patient care.
--- NOTE | 2019-03-22 23:00 | NUR ---
dressing to chest tubes changed this hour, no signs of skin irritation or infection. Petroleum gauze and silk tape used to dress chest tubes.
[2019-03-23] VITALS (24 sets, daily range): BP systolic 105–155; BP diastolic 55–69
[2019-03-23] MEDS: sodium chloride 0.45% 1,000 ML IV SCH (01:57)
[2019-03-23 04:06] LABS: BASOPHILS % (AUTO) 0.1 % (0-1); EOSINOPHILS % (AUTO) 0 % (0-6); HEMATOCRIT 23.6 % (42.0-52.0); LYMPHOCYTES # (AUTO) 1.3 X10'3 (1.1-4.8); LYMPHOCYTES % (AUTO) 9.3 % (21-51); MEAN CORPUSCULAR HEMOGLOBIN 29.1 PG (27.0-31.0); MEAN CORPUSCULAR HGB CONC 33.7 g/dL (33.0-36.5); MEAN CORPUSCULAR VOLUME 86.2 FL (78-98); MEAN PLATELET VOLUME 9.7 FL (7.4-10.4); MONOCYTES # (AUTO) 1.7 X10'3 (0-0.9); NEUTROPHILS # (AUTO) 10.9 X10'3 (1.8-7.7); NEUTROPHILS % (AUTO) 78.6 % (42-75); PLATELET COUNT 98 X10'3 (140-440); RED BLOOD COUNT 2.74 X10'6 (4.70-6.10); RED CELL DISTRIBUTION WIDTH 14.7 % (11.5-14.5); WHITE BLOOD COUNT 13.9 X10'3 (4.5-11.0)
[2019-03-23 04:18] LABS: ALBUMIN 2.6 G/DL (3.4-5.0); ANION GAP 7 (8-16); BLOOD UREA NITROGEN 32 MG/DL (7-18); BUN/CREATININE RATIO 22.9 (5.4-32.0); CALCIUM 7.3 MG/DL (8.5-10.1); CHLORIDE 105 MMOL/L (99-107); GLUCOSE 209 MG/DL (70-104); MAGNESIUM 2.5 MG/DL (1.5-2.4); PHOSPHORUS 2.8 MG/DL (2.3-4.5); POTASSIUM 4.7 MMOL/L (3.5-5.1); SODIUM 135 MMOL/L (135-145); eGFR 50 ML/MIN
--- NOTE | 2019-03-23 06:33 | NUR ---
Problems reprioritized. Patient report given, questions answered & plan of care reviewed with STEPHANIE Calderon.
[2019-03-23] MEDS: pantoprazole 40mg Tablet.DR PO SCH (08:47)
[2019-03-23] MEDS: atorvastatin 10mg tablet PO SCH (08:47)
[2019-03-23] MEDS: multivitamins, therapeutics tablet PO SCH (08:47)
[2019-03-23] MEDS: aspirin 325mg tablet, delayed-release (Ecotrin) PO SCH (08:47)
[2019-03-23] MEDS: docusate sod 100mg capsule PO SCH ×2 (08:48→19:50)
[2019-03-23] MEDS: gabapentin 400mg capsule PO SCH ×2 (08:48→19:50)
[2019-03-23] MEDS: furosemide 40mg/4ml inj IV SCH (08:48)
[2019-03-23] MEDS: HYDROcodone/acetaminophen 10/325mg tab PO PRN ×2 (08:49→19:51)
[2019-03-23] MEDS: insulin Lispro (HumaLOG) vial - multi-dose SQ SCH ×4 (09:09→20:08)
[2019-03-23] MEDS: insulin glargine (Lantus) pen - multi-dose SQ SCH (13:30)
--- NOTE | 2019-03-23 16:08 | NUR ---
DM consult: Pt with hx T2DM with A1c 11.4. Pt s/p CABG x 3. Pt will need protein and DM educations with referral to outpatient DM class once stable prior to discharge. Pt admit with atherosclerotic CAD. Patient was seen at bedside and provided with written DM education handout with verbal review and referral to outpatient DM eduction class on Tuesday morning. Patient reports that six months ago his lab draw revealed triglycerides of around 1800, he takes 150 units lantus at night and covers meals with novolog, patient's hypertriglyceridemia may be associated with patient's insulin resistance, d/w RN. Currently patient is at highest level of hyperglycemic protocol and blood glucose is ranging between 104-279 mg/dl. Patient eating reasonable amount of carbohydrates per his diet order. Patient had scheduled an appointment with CDE and plans to attend the class. Recommended to continue his home diet of low fat, carb controlled diet. Provided written post cardiac surgery diet education handout with verbal review. Will continue to follow. Recommendations: 1) Continue no concentrated sweets diet 2) Continue Bowel care 3) Wt per rx Addendum: 03/23/19 at [address] Amended: Links added.
--- NOTE | 2019-03-23 18:20 | NUR ---
Patient in room ICU 2042. I have received report from STEPHANIE Calderon and had the opportunity to ask questions and assume patient care. Patient up in chair, on room air, VSS stable, no s/sx of distress. Patient is AV Paced via epicardial wires. Will continue to monitor
--- NOTE | 2019-03-23 20:15 | NUR ---
Patient refused oral care and ambulatiion.
[2019-03-24] VITALS (24 sets, daily range): BP systolic 95–151; BP diastolic 41–66
[2019-03-24 03:35] LABS: BASOPHILS % (AUTO) 0 % (0-1); EOSINOPHILS % (AUTO) 0 % (0-6); HEMATOCRIT 23.2 % (42.0-52.0); HEMOGLOBIN 7.7 g/dl (14.0-17.9); LYMPHOCYTES # (AUTO) 1.3 X10'3 (1.1-4.8); LYMPHOCYTES % (AUTO) 10.9 % (21-51); MEAN CORPUSCULAR HEMOGLOBIN 28.9 PG (27.0-31.0); MEAN CORPUSCULAR HGB CONC 33.2 g/dL (33.0-36.5); MEAN CORPUSCULAR VOLUME 87.1 FL (78-98); MEAN PLATELET VOLUME 9.8 FL (7.4-10.4); MONOCYTES # (AUTO) 1.2 X10'3 (0-0.9); NEUTROPHILS # (AUTO) 9.4 X10'3 (1.8-7.7); NEUTROPHILS % (AUTO) 79.1 % (42-75); PLATELET COUNT 108 X10'3 (140-440); RED BLOOD COUNT 2.67 X10'6 (4.70-6.10); RED CELL DISTRIBUTION WIDTH 15.1 % (11.5-14.5); WHITE BLOOD COUNT 11.9 X10'3 (4.5-11.0)
[2019-03-24 03:37] LABS: ALBUMIN 2.5 G/DL (3.4-5.0); ANION GAP 8 (8-16); BLOOD UREA NITROGEN 36 MG/DL (7-18); BUN/CREATININE RATIO 28.6 (5.4-32.0); CALCIUM 7.4 MG/DL (8.5-10.1); CHLORIDE 105 MMOL/L (99-107); CREATININE 1.26 MG/DL (0.60-1.10); GLUCOSE 137 MG/DL (70-104); MAGNESIUM 2.5 MG/DL (1.5-2.4); PHOSPHORUS 3.4 MG/DL (2.3-4.5); POTASSIUM 4.3 MMOL/L (3.5-5.1); SODIUM 137 MMOL/L (135-145); TOTAL CARBON DIOXIDE 23.8 MMOL/L (24-32); TRIGLYCERIDES 101 MG/DL (20-135); eGFR 56 ML/MIN
--- NOTE | 2019-03-24 05:59 | NUR ---
Sloan cath removed per [facility] sloan protocol.
--- NOTE | 2019-03-24 06:05 | NUR ---
Pt requested to stay in bed after offer to get up.
--- NOTE | 2019-03-24 06:30 | NUR ---
Problems reprioritized. Patient report given, questions answered & plan of care reviewed with Kvng BROWN.
[2019-03-24] MEDS: docusate sod 100mg capsule PO SCH ×2 (06:54→19:37)
[2019-03-24] MEDS: potassium Cl 20 mEq SR tablet PO PRN (08:12)
[2019-03-24] MEDS: multivitamins, therapeutics tablet PO SCH (08:12)
[2019-03-24] MEDS: pantoprazole 40mg Tablet.DR PO SCH (08:12)
[2019-03-24] MEDS: aspirin 325mg tablet, delayed-release (Ecotrin) PO SCH (08:12)
[2019-03-24] MEDS: atorvastatin 10mg tablet PO SCH (08:12)
[2019-03-24] MEDS: gabapentin 400mg capsule PO SCH ×2 (08:12→19:35)
[2019-03-24] MEDS: furosemide 40mg/4ml inj IV SCH (08:14)
[2019-03-24] MEDS: insulin Lispro (HumaLOG) vial - multi-dose SQ SCH ×3 (08:28→19:02)
[2019-03-24] MEDS: HYDROcodone/acetaminophen 10/325mg tab PO PRN ×2 (11:39→19:35)
[2019-03-24] MEDS: ferrous sulfate 325mg tablet PO SCH ×2 (13:29→18:52)
--- NOTE | 2019-03-24 13:52 | NUR ---
Spoke with Dr Liao regarding poor blood sugar control. No new orders
[2019-03-24] MEDS: insulin glargine (Lantus) pen - multi-dose SQ SCH (14:03)
--- NOTE | 2019-03-24 18:15 | NUR ---
Patient in room ICU . I have received report from Kvng and had the opportunity to ask questions and assume patient care. Patient is up in chair, A & O x 4, denies chest pain, dizziness, or SOB. Pt ambulated twice during day shift. Patient central line was removed today. Will continue to monitor
[2019-03-25] VITALS (23 sets, daily range): BP systolic 112–138; BP diastolic 52–79
--- NOTE | 2019-03-25 01:30 | NUR ---
Bladder scan patient > 1000ml, patient attempted to urinate unable to do so. Straight cath was done and received 1250 ml.
--- NOTE | 2019-03-25 04:57 | NUR ---
Pt w/another rhythm change; no longer in afib; now only AV paced at rate of 50; does not appear to have underlying rhythm; pacer rate increased to 60/min
--- NOTE | 2019-03-25 06:30 | NUR ---
I have reviewed and agree with interventions, assessments performed and documented by Ignacio BROWN. Medication Administration: For this medication-pass time frame, all medication were reviewed, dispensed, administered and documented per hospital policy by Ignacio BROWN
--- NOTE | 2019-03-25 06:35 | NUR ---
Problems reprioritized. Patient report given, questions answered & plan of care reviewed with Corrina BROWN.
[2019-03-25 07:56] LABS: BASOPHILS % (AUTO) 0.1 % (0-1); EOSINOPHILS # (AUTO) 0.1 X10'3 (0-0.9); EOSINOPHILS % (AUTO) 0.4 % (0-6); HEMATOCRIT 24.9 % (42.0-52.0); HEMOGLOBIN 8.5 g/dl (14.0-17.9); LYMPHOCYTES # (AUTO) 1.9 X10'3 (1.1-4.8); MEAN CORPUSCULAR HEMOGLOBIN 29.3 PG (27.0-31.0); MEAN CORPUSCULAR HGB CONC 33.9 g/dL (33.0-36.5); MEAN CORPUSCULAR VOLUME 86.2 FL (78-98); MEAN PLATELET VOLUME 9.2 FL (7.4-10.4); MONOCYTES # (AUTO) 1.6 X10'3 (0-0.9); MONOCYTES % (AUTO) 12.7 % (2-12); NEUTROPHILS # (AUTO) 9.1 X10'3 (1.8-7.7); NEUTROPHILS % (AUTO) 71.8 % (42-75); PLATELET COUNT 150 X10'3 (140-440); RED BLOOD COUNT 2.89 X10'6 (4.70-6.10); RED CELL DISTRIBUTION WIDTH 15.1 % (11.5-14.5); WHITE BLOOD COUNT 12.6 X10'3 (4.5-11.0)
[2019-03-25] MEDS: docusate sod 100mg capsule PO SCH ×2 (08:00→19:54)
[2019-03-25] MEDS: dextrose ORAL solution 15 GM/59 ML bottle PO PRN (08:03)
[2019-03-25 08:30] LABS: ALBUMIN 2.4 G/DL (3.4-5.0); ANION GAP 10 (8-16); BLOOD UREA NITROGEN 32 MG/DL (7-18); BUN/CREATININE RATIO 28.8 (5.4-32.0); CALCIUM 7.5 MG/DL (8.5-10.1); CHLORIDE 108 MMOL/L (99-107); CREATININE 1.11 MG/DL (0.60-1.10); GLUCOSE 60 MG/DL (70-104); MAGNESIUM 2.4 MG/DL (1.5-2.4); PHOSPHORUS 3.9 MG/DL (2.3-4.5); POTASSIUM 3.9 MMOL/L (3.5-5.1); SODIUM 142 MMOL/L (135-145); TOTAL CARBON DIOXIDE 24.3 MMOL/L (24-32); eGFR 65 ML/MIN
[2019-03-25] MEDS: gabapentin 400mg capsule PO SCH ×2 (08:46→19:54)
[2019-03-25] MEDS: ferrous sulfate 325mg tablet PO SCH ×3 (08:46→18:08)
[2019-03-25] MEDS: atorvastatin 10mg tablet PO SCH (08:46)
[2019-03-25] MEDS: multivitamins, therapeutics tablet PO SCH (08:46)
[2019-03-25] MEDS: aspirin 325mg tablet, delayed-release (Ecotrin) PO SCH (08:46)
[2019-03-25] MEDS: pantoprazole 40mg Tablet.DR PO SCH (08:48)
[2019-03-25] MEDS: furosemide 40mg tablet PO SCH (08:48)
[2019-03-25] MEDS: HYDROcodone/acetaminophen 10/325mg tab PO PRN ×3 (08:53→19:54)
--- NOTE | 2019-03-25 11:01 | NUR ---
F/u: Pt seen by RD for written/verbal DM/CABG eds w/ RD contact information provided. Pt declined written and verbal DM/CABG eds; did accept RD contact information. Pt reports scheduled to attend CDE course. PO 100% meals meeting needs. LBM 03/24. No nutrition concerns at this time. Will continue to monitor. Recommendations: 1) Continue no concentrated sweets diet 2) Continue Bowel care 3) Wt per rx Addendum: 03/25/19 at [address] Amended: Links added.
[2019-03-25] MEDS ORDERED: potassium CL 10mEq/100ml bag 100 ML IV PRN ×2 (11:20)
[2019-03-25] MEDS ORDERED: magnesium Cl slow-release 64mg tablet PO PRN (11:20)
[2019-03-25] MEDS ORDERED: magnesium 4gm in 100ml NS 100 ML IV PRN (11:20)
[2019-03-25] MEDS ORDERED: magnesium 2GM in 50ml NS 50 ML IV PRN (11:20)
[2019-03-25] MEDS ORDERED: potassium Cl 20 mEq SR tablet PO PRN ×2 (11:20)
[2019-03-25] MEDS: insulin Lispro (HumaLOG) vial - multi-dose SQ SCH ×2 (13:34→19:01)
[2019-03-25] MEDS ORDERED: insulin glargine (Lantus) pen - multi-dose SQ SCH (14:00)
--- NOTE | 2019-03-25 18:15 | NUR ---
Patient in room ICU 2042. I have received report from Corrina BROWN and had the opportunity to ask questions and assume patient care. Pt up in chair at bedside, on room air with spo2 at 97%, PIV saline locked, no s/s of distress, call light in reach, epicardial pacer set at back up rate/ See interventions and EMR for further information. Will continue to monitor.
[2019-03-25] MEDS: potassium Cl 20 mEq SR tablet PO SCH (19:54)
[2019-03-25] MEDS: magnesium Cl slow-release 64mg tablet PO SCH (19:55)
[2019-03-26] VITALS (23 sets, daily range): BP systolic 95–161; BP diastolic 49–77
[2019-03-26] MEDS: dextrose ORAL solution 15 GM/59 ML bottle PO PRN ×2 (00:47→01:05)
--- NOTE | 2019-03-26 06:00 | NUR ---
Bladder scanned pt, showed greater than 999ml, pt voided via urinal for 600ml yellow urine with one large blood clot, post void bladder scan showed greater than 999ml, straight cath for 1100ml.
[2019-03-26 06:18] LABS: BASOPHILS % (AUTO) 0.1 % (0-1); EOSINOPHILS # (AUTO) 0.2 X10'3 (0-0.9); EOSINOPHILS % (AUTO) 1.9 % (0-6); HEMATOCRIT 25.6 % (42.0-52.0); HEMOGLOBIN 8.5 g/dl (14.0-17.9); LYMPHOCYTES # (AUTO) 1.7 X10'3 (1.1-4.8); LYMPHOCYTES % (AUTO) 13.8 % (21-51); MEAN CORPUSCULAR HEMOGLOBIN 29.6 PG (27.0-31.0); MEAN CORPUSCULAR HGB CONC 33.3 g/dL (33.0-36.5); MEAN CORPUSCULAR VOLUME 88.7 FL (78-98); MEAN PLATELET VOLUME 9.5 FL (7.4-10.4); MONOCYTES # (AUTO) 1.6 X10'3 (0-0.9); NEUTROPHILS % (AUTO) 71.2 % (42-75); PLATELET COUNT 154 X10'3 (140-440); RED BLOOD COUNT 2.88 X10'6 (4.70-6.10); RED CELL DISTRIBUTION WIDTH 14.8 % (11.5-14.5); WHITE BLOOD COUNT 12.6 X10'3 (4.5-11.0)
[2019-03-26 06:21] LABS: ALBUMIN 2.5 G/DL (3.4-5.0); ANION GAP 11 (8-16); BLOOD UREA NITROGEN 25 MG/DL (7-18); BUN/CREATININE RATIO 23.1 (5.4-32.0); CALCIUM 7.7 MG/DL (8.5-10.1); CHLORIDE 104 MMOL/L (99-107); CREATININE 1.08 MG/DL (0.60-1.10); GLUCOSE 133 MG/DL (70-104); MAGNESIUM 2.2 MG/DL (1.5-2.4); PHOSPHORUS 4.5 MG/DL (2.3-4.5); POTASSIUM 3.9 MMOL/L (3.5-5.1); SODIUM 139 MMOL/L (135-145); TOTAL CARBON DIOXIDE 24.3 MMOL/L (24-32); eGFR 67 ML/MIN
--- NOTE | 2019-03-26 06:34 | NUR ---
Problems reprioritized. Patient report given, questions answered & plan of care reviewed with Corrina BROWN.
[2019-03-26] MEDS: pantoprazole 40mg Tablet.DR PO SCH (07:54)
[2019-03-26] MEDS: aspirin 325mg tablet, delayed-release (Ecotrin) PO SCH (07:54)
[2019-03-26] MEDS: atorvastatin 10mg tablet PO SCH (07:54)
[2019-03-26] MEDS: ferrous sulfate 325mg tablet PO SCH ×3 (07:54→17:57)
[2019-03-26] MEDS: potassium Cl 20 mEq SR tablet PO SCH ×2 (07:54→20:50)
[2019-03-26] MEDS: gabapentin 400mg capsule PO SCH ×2 (07:54→20:49)
[2019-03-26] MEDS: multivitamins, therapeutics tablet PO SCH (07:54)
[2019-03-26] MEDS: magnesium Cl slow-release 64mg tablet PO SCH ×2 (07:55→20:00)
[2019-03-26] MEDS: docusate sod 100mg capsule PO SCH ×2 (07:55→20:00)
[2019-03-26] MEDS ORDERED: K and/or MAG REPLACEMENT MC SCH (08:00)
[2019-03-26] MEDS: furosemide 40mg tablet PO SCH (08:09)
[2019-03-26] MEDS ORDERED: magnesium 4gm in 100ml NS 100 ML IV PRN (08:15)
[2019-03-26] MEDS ORDERED: magnesium 2GM in 50ml NS 50 ML IV PRN (08:15)
[2019-03-26] MEDS ORDERED: magnesium Cl slow-release 64mg tablet PO PRN (08:15)
[2019-03-26] MEDS ORDERED: potassium Cl 20 mEq SR tablet PO PRN ×2 (08:15)
[2019-03-26] MEDS ORDERED: potassium CL 10mEq/100ml bag 100 ML IV PRN ×2 (08:15)
--- NOTE | 2019-03-26 09:14 | NUR ---
Epicardial wires isolated. Patient has been maintaining own rhythm (SB). Dr. Rodriguez and MADELYN Bautista rounded in AM and agree. Updated MD and PA on patient condition. Per MD, no need to keep straight cath'ing patient. Let pt do own home voiding routine.
--- NOTE | 2019-03-26 09:50 | NUR ---
Called MADELYN Bautista and notified him of change in patient condition. Patient's rhythm is a-fib after AM walk. Rate controlled (70s-80s bpm) and BP 127/57. No new orders to treat rhythm since pt has history of a-fib and recently stopped requiring epicardial pacing. Per MADELYN, continue monitoring patient in ICU and do not transfer to [facility] yet.
[2019-03-26] MEDS: HYDROcodone/acetaminophen 10/325mg tab PO PRN ×2 (12:00→20:49)
[2019-03-26] MEDS: insulin Lispro (HumaLOG) vial - multi-dose SQ SCH ×2 (13:20→19:08)
[2019-03-26] MEDS ORDERED: insulin glargine (Lantus) pen - multi-dose SQ SCH (14:00)
--- NOTE | 2019-03-26 18:15 | NUR ---
Patient in room ICU 2042. I have received report from Corrina BROWN and had the opportunity to ask questions and assume patient care. Pt resting in bed, on venturi mask with FiO2 at 31%, spo2 at 89%, no c/o pain, no s/s of distress. See interventions and EMR for further information. Will continue to monitor. Addendum: 03/27/19 at 0350 by Vanessa Abarca RN Wrong patient
--- NOTE | 2019-03-26 18:20 | NUR ---
Patient in room ICU 2042. I have received report from Corrina BROWN and had the opportunity to ask questions and assume patient care. Pt up in chair at bedside, dinner tray delivered, no s/s of distress, on room air, non skid socks on, PIV saline locked. See interventions for further information. All monitoring alarms audible. Will continue to monitor.
[2019-03-26 18:39] LABS: TOTAL CELLS COUNTED 100
[2019-03-26 18:40] LABS: ANISOCYTOSIS 1+; PLATELET ESTIMATE NORMAL; POIKILOCYTOSIS 1+; POLYCHROMASIA 2+
[2019-03-26 18:42] LABS: ACANTHOCYTES 1+
[2019-03-26 18:43] LABS: SCHISTOCYTES FEW
[2019-03-27] VITALS (20 sets, daily range): BP systolic 111–148; BP diastolic 48–67
[2019-03-27] MEDS: dextrose ORAL solution 15 GM/59 ML bottle PO PRN (02:30)
--- NOTE | 2019-03-27 03:46 | NUR ---
Blood glucose at 0227 was 50, treated per protocol with oral dextrose, blood glucose increased to 70 after 15mins. Pt was give one yogurt to eat afterwards.
[2019-03-27 04:46] LABS: BASOPHILS % (AUTO) 0.2 % (0-1); EOSINOPHILS # (AUTO) 0.3 X10'3 (0-0.9); EOSINOPHILS % (AUTO) 2.2 % (0-6); LYMPHOCYTES # (AUTO) 1.4 X10'3 (1.1-4.8); MEAN CORPUSCULAR HEMOGLOBIN 29.3 PG (27.0-31.0); MEAN CORPUSCULAR HGB CONC 33.4 g/dL (33.0-36.5); MEAN CORPUSCULAR VOLUME 87.8 FL (78-98); MEAN PLATELET VOLUME 8.8 FL (7.4-10.4); MONOCYTES # (AUTO) 1.5 X10'3 (0-0.9); MONOCYTES % (AUTO) 11.3 % (2-12); NEUTROPHILS # (AUTO) 10.3 X10'3 (1.8-7.7); NEUTROPHILS % (AUTO) 76.3 % (42-75); PLATELET COUNT 180 X10'3 (140-440); RED BLOOD COUNT 3.08 X10'6 (4.70-6.10); RED CELL DISTRIBUTION WIDTH 15.1 % (11.5-14.5); WHITE BLOOD COUNT 13.5 X10'3 (4.5-11.0)
[2019-03-27 04:52] LABS: ALBUMIN 2.4 G/DL (3.4-5.0); ANION GAP 6 (8-16); BLOOD UREA NITROGEN 21 MG/DL (7-18); BUN/CREATININE RATIO 17.1 (5.4-32.0); CHLORIDE 105 MMOL/L (99-107); CREATININE 1.23 MG/DL (0.60-1.10); GLUCOSE 106 MG/DL (70-104); MAGNESIUM 1.9 MG/DL (1.5-2.4); POTASSIUM 3.6 MMOL/L (3.5-5.1); SODIUM 139 MMOL/L (135-145); TOTAL CARBON DIOXIDE 27.6 MMOL/L (24-32); eGFR 58 ML/MIN
--- NOTE | 2019-03-27 05:24 | NUR ---
Pt awake on and off throughout night, alert and orientated x4 heart rate in 60-70s in afib, VSS, on room air. Provided snack before bed of two yogurts. Low blood sugars treated per protocol.
--- NOTE | 2019-03-27 06:23 | NUR ---
Problems reprioritized. Patient report given, questions answered & plan of care reviewed with Corrina BROWN.
[2019-03-27] MEDS: furosemide 40mg tablet PO SCH (08:00)
[2019-03-27] MEDS: aspirin 325mg tablet, delayed-release (Ecotrin) PO SCH (08:00)
[2019-03-27] MEDS: pantoprazole 40mg Tablet.DR PO SCH (08:00)
[2019-03-27] MEDS: magnesium Cl slow-release 64mg tablet PO SCH ×2 (08:00→19:38)
[2019-03-27] MEDS: gabapentin 400mg capsule PO SCH ×2 (08:00→19:21)
[2019-03-27] MEDS: HYDROcodone/acetaminophen 10/325mg tab PO PRN ×2 (08:00→19:20)
[2019-03-27] MEDS: atorvastatin 10mg tablet PO SCH (08:00)
[2019-03-27] MEDS: ferrous sulfate 325mg tablet PO SCH ×3 (08:00→19:21)
[2019-03-27] MEDS: potassium Cl 20 mEq SR tablet PO SCH ×2 (08:00→19:37)
[2019-03-27] MEDS ORDERED: K and/or MAG REPLACEMENT MC SCH (08:00)
[2019-03-27] MEDS: multivitamins, therapeutics tablet PO SCH (08:00)
[2019-03-27] MEDS: docusate sod 100mg capsule PO SCH ×2 (08:00→20:00)
[2019-03-27 09:26] LABS: TOTAL CELLS COUNTED 100
[2019-03-27 09:28] LABS: PLATELET ESTIMATE NORMAL; POLYCHROMASIA 2+
[2019-03-27 09:29] LABS: ANISOCYTOSIS 1+
[2019-03-27 09:33] LABS: ACANTHOCYTES 1+; POIKILOCYTOSIS 1+
[2019-03-27] MEDS: insulin Lispro (HumaLOG) vial - multi-dose SQ SCH ×2 (13:14→19:23)
--- NOTE | 2019-03-27 17:00 | NUR ---
Report given to STEPHANIE Valencia from [facility] unit. All questions answered. Patient transferred to room 315 via wheelchair accompanied by nurse.
--- NOTE | 2019-03-27 17:21 | NUR ---
Pt. arrived from ICU. Pt. made comfortable and helped to his bedside chair. Pt. was placed on the instrumentation chemist and vital signs taken. Blood glucose taken and is now waiting on food. Pt. assessed and is not in any distress and does not have any complaints. Pt. reminded about about sternal precautions and given his call light.
--- NOTE | 2019-03-27 18:00 | NUR ---
Patient in room MED 315. I have received report from STEPHANIE Valencia and had the opportunity to ask questions and assume patient care.
--- NOTE | 2019-03-27 18:43 | NUR ---
Problems reprioritized. Patient report given, questions answered & plan of care reviewed with Nuria BROWN.
[2019-03-27] MEDS ORDERED: magnesium 2GM in 50ml NS 50 ML IV PRN (19:10)
[2019-03-27] MEDS ORDERED: potassium CL 10mEq/100ml bag 100 ML IV PRN (19:10)
[2019-03-27] MEDS ORDERED: magnesium 4gm in 100ml NS 100 ML IV PRN (19:10)
[2019-03-27] MEDS: apixaban 5mg tablet PO SCH (19:21)
[2019-03-27] MEDS: potassium Cl 20 mEq SR tablet PO PRN ×3 (19:37→23:37)
[2019-03-27] MEDS ORDERED: insulin glargine (Lantus) pen - multi-dose SQ SCH (21:00)
--- NOTE | 2019-03-27 22:17 | NUR ---
PC with Dr. Rodriguez regarding getting lantus dosage adjusted, it sounded like Dr. Rodriguez had bad receptionist on cell phone. RN decided to withhold lantus since pt has been having low blood sugar for 2 consecutive days.
[2019-03-28 02:00] VITALS: BP 100/77
[2019-03-28] MEDS: HYDROcodone/acetaminophen 10/325mg tab PO PRN (05:00)
[2019-03-28 05:48] LABS: ALBUMIN 2.3 G/DL (3.4-5.0); ANION GAP 8 (8-16); BASOPHILS % (AUTO) 0.2 % (0-1); BLOOD UREA NITROGEN 20 MG/DL (7-18); BUN/CREATININE RATIO 17.9 (5.4-32.0); CHLORIDE 105 MMOL/L (99-107); CREATININE 1.12 MG/DL (0.60-1.10); EOSINOPHILS # (AUTO) 0.5 X10'3 (0-0.9); EOSINOPHILS % (AUTO) 4.5 % (0-6); GLUCOSE 85 MG/DL (70-104); HEMATOCRIT 25.7 % (42.0-52.0); HEMOGLOBIN 8.6 g/dl (14.0-17.9); LYMPHOCYTES # (AUTO) 2.4 X10'3 (1.1-4.8); LYMPHOCYTES % (AUTO) 19.9 % (21-51); MAGNESIUM 2.3 MG/DL (1.5-2.4); MEAN CORPUSCULAR HEMOGLOBIN 29.4 PG (27.0-31.0); MEAN CORPUSCULAR HGB CONC 33.5 g/dL (33.0-36.5); MEAN CORPUSCULAR VOLUME 87.6 FL (78-98); MEAN PLATELET VOLUME 8.6 FL (7.4-10.4); MONOCYTES # (AUTO) 1.2 X10'3 (0-0.9); MONOCYTES % (AUTO) 10.3 % (2-12); NEUTROPHILS # (AUTO) 7.8 X10'3 (1.8-7.7); NEUTROPHILS % (AUTO) 65.1 % (42-75); PLATELET COUNT 196 X10'3 (140-440); POTASSIUM 4.6 MMOL/L (3.5-5.1); RED BLOOD COUNT 2.93 X10'6 (4.70-6.10); RED CELL DISTRIBUTION WIDTH 15.4 % (11.5-14.5); SODIUM 138 MMOL/L (135-145); TOTAL CARBON DIOXIDE 25.1 MMOL/L (24-32); eGFR 65 ML/MIN
[2019-03-28 06:00] VITALS: BP 106/41
--- NOTE | 2019-03-28 06:10 | NUR ---
Problems reprioritized. Patient report given, questions answered & plan of care reviewed with STEPHANIE Hyman.
--- NOTE | 2019-03-28 06:15 | NUR ---
Patient in room MED 315. I have received report from Nuria BROWN and had the opportunity to ask questions and assume patient care.
--- NOTE | 2019-03-28 07:31 | NUR ---
Michele JOSHI at bedside, pulled pacer wires at this time. Patient tolerated well.
--- NOTE | 2019-03-28 07:40 | NUR ---
Spoke to Carmen JOSHI regarding patient's blood sugar dropping low in the am after the 100 units of Lantus. Received orders to decrease dose to 50 units Lantus at bedtime.
[2019-03-28] MEDS ORDERED: furosemide 20MG tablet PO SCH (08:00)
[2019-03-28] MEDS: magnesium Cl slow-release 64mg tablet PO SCH (08:00)
[2019-03-28] MEDS: potassium Cl 20 mEq SR tablet PO SCH (08:00)
[2019-03-28] MEDS: docusate sod 100mg capsule PO SCH (08:00)
[2019-03-28] MEDS ORDERED: aspirin 81mg tablet.DR PO SCH (08:00)
[2019-03-28] MEDS: atorvastatin 10mg tablet PO SCH (08:41)
[2019-03-28] MEDS: gabapentin 400mg capsule PO SCH (08:41)
[2019-03-28] MEDS: ferrous sulfate 325mg tablet PO SCH ×2 (08:42→12:46)
[2019-03-28] MEDS: apixaban 5mg tablet PO SCH (08:42)
[2019-03-28] MEDS: pantoprazole 40mg Tablet.DR PO SCH (08:42)
[2019-03-28] MEDS: multivitamins, therapeutics tablet PO SCH (08:46)
[2019-03-28] MEDS: insulin Lispro (HumaLOG) vial - multi-dose SQ SCH ×2 (09:32→12:50)
[2019-03-28 11:00] VITALS: BP 118/57
[2019-03-28 11:54] LABS: NUCLEATED RED BLOOD CELLS 1 /100WBC (0-0); TOTAL CELLS COUNTED 100
[2019-03-28 11:55] LABS: ACANTHOCYTES FEW; ANISOCYTOSIS 1+; BURR CELLS 1+; PLATELET ESTIMATE NORMAL; POIKILOCYTOSIS 1+; POLYCHROMASIA 2+
[2019-03-28 11:56] LABS: HYPOCHROMASIA 1+; TOXIC GRANULATION 1+
--- NOTE | 2019-03-28 13:49 | NUR ---
CALLEDGEMINI, PATIENT'S . INFORMED HER THAT PATIENT WILL BE TRANSFERRED TO [facility] AND HAS A PICKUP TIME OF 1700 TODAY.
--- NOTE | 2019-03-28 14:44 | NUR ---
Called and gave report to Erika at [facility]
[2019-03-28 15:00] VITALS: BP 121/66
--- NOTE | 2019-03-28 17:26 | NUR ---
Patient discharged To [facility]. All belongings gathered and taken with patient. IV removed cannula intact. Packet sent with the transport.
[2019-03-28] MEDS ORDERED: insulin glargine (Lantus) pen - multi-dose SQ SCH (21:00)
== END 2019-03-28 17:00 | DRG 216 ==
LOC: SSTAY O 10:33 → MED 3N 17:43 → ICU 2S 03-20 08:44 → MED 3N 03-27 17:05
PROVIDERS: ADMIT Thoracic Surgery (Cardiothoracic Vascular Surgery); ATTEND Internal Medicine Cardiovascular Disease
PROC: 4A023N7 Measurement of Cardiac Sampling and Pressure, Left Heart, Percutaneous Approach (ICD-10-PCS; principal; 2019-03-19)
PROC: B2111ZZ Fluoroscopy of Multiple Coronary Arteries using Low Osmolar Contrast (ICD-10-PCS; 2019-03-19)
PROC: B2151ZZ Fluoroscopy of Left Heart using Low Osmolar Contrast (ICD-10-PCS; 2019-03-19)
PROC: 02UG08Z Supplement Mitral Valve with Zooplastic Tissue, Open Approach (ICD-10-PCS; 2019-03-20)
PROC: 02100Z9 Bypass Coronary Artery, One Artery from Left Internal Mammary, Open Approach (ICD-10-PCS; 2019-03-20)
PROC: 021109W Bypass Coronary Artery, Two Arteries from Aorta with Autologous Venous Tissue, Open Approach (ICD-10-PCS; 2019-03-20)
PROC: 06BP4ZZ Excision of Right Saphenous Vein, Percutaneous Endoscopic Approach (ICD-10-PCS; 2019-03-20)
PROC: 30233R1 Transfusion of Nonautologous Platelets into Peripheral Vein, Percutaneous Approach (ICD-10-PCS; 2019-03-20)
PROC: 5A1221Z Performance of Cardiac Output, Continuous (ICD-10-PCS; 2019-03-20)
PROC: B24BZZ4 Ultrasonography of Heart with Aorta, Transesophageal (ICD-10-PCS; 2019-03-20)
PROC: 02L70ZK Occlusion of Left Atrial Appendage, Open Approach (ICD-10-PCS; 2019-03-20)
PROC: 5A1221Z Performance of Cardiac Output, Continuous (ICD-10-PCS; 2019-03-20)
PROC: 02HV33Z Insertion of Infusion Device into Superior Vena Cava, Percutaneous Approach (ICD-10-PCS; 2019-03-20)
PROC: 4A133B3 Monitoring of Arterial Pressure, Pulmonary, Percutaneous Approach (ICD-10-PCS; 2019-03-20)
PROC: 02HP32Z Insertion of Monitoring Device into Pulmonary Trunk, Percutaneous Approach (ICD-10-PCS; 2019-03-20)
DX: I34.0 Nonrheumatic mitral (valve) insufficiency (principal); I50.23 Acute on chronic systolic (congestive) heart failure; D62 Acute posthemorrhagic anemia; Q25.0 Patent ductus arteriosus; I25.10 Atherosclerotic heart disease of native coronary artery without angina pectoris; E11.51 Type 2 diabetes mellitus with diabetic peripheral angiopathy without gangrene; E11.41 Type 2 diabetes mellitus with diabetic mononeuropathy; E11.621 Type 2 diabetes mellitus with foot ulcer; E78.5 Hyperlipidemia, unspecified; R00.1 Bradycardia, unspecified; L97.529 Non-pressure chronic ulcer of other part of left foot with unspecified severity; I48.0 Paroxysmal atrial fibrillation; I11.0 Hypertensive heart disease with heart failure; G89.4 Chronic pain syndrome; I25.2 Old myocardial infarction; Z79.4 Long term (current) use of insulin; Z79.899 Other long term (current) drug therapy; Z88.8 Allergy status to other drugs, medicaments and biological substances; Z79.82 Long term (current) use of aspirin; Z87.891 Personal history of nicotine dependence; Z79.01 Long term (current) use of anticoagulants; Z79.84 Long term (current) use of oral hypoglycemic drugs
CPT/HCPCS: 36415; 36600; 71045; 71046; 80048; 80053; 81001; 82330; 82435; 82803; 82947; 82948; 83036; 83735; 84100; 84132; 84295; 84478; 85018; 85025; 85027; 85347; 85384; 85576; 85610; 85730; 86885; 86900; 86901; 86920; 87081; 93005; 93312; 93325; 93458; 93970; 94002; 94010; 94667; 94668; 94760; 97110; 97116; 97161; 97530; 99152; 99153; A4618; A4620; A6196; A6258; A6449; A7000; A7048; C1751; C1760; C1769; C1894; G0378; J0131; J0171; J0690; J0780; J1265; J1644; J1815; J1940; J2001; J2060; J2150; J2250; J2270; J2370; J2440; J2704; J2720; J2795; J2930; J3010; J3370; J3475; J3480; J3490; J7030; J7040; J7050; J7060; J7120; P9035; P9045; P9047; Q0163; Q9967

== ENCOUNTER 2020-01-18 08:20 | Day surgery (SDC) | payer MEDICARE, MEDICAID ==
[~2020-01-18 08:20] MED LIST changes: +AMIO200T61 PO; -AMLO2.5T2 PO; +APIX5TAB3 PO; -ASPI-1264 PO; +FLO0.4C PO; +GLIP5TAB13 PO; -HYDR12.5 PO; -INSU100I25 SQ; +INSU100I29 SQ; -ISOS60TA4 PO; +LIRA0.6P2 SUBCUT; -NORCO10T PO; -OMEG1CAP13 PO; -PRAV80TA PO; +ROSU40TA PO; -TRAZ-251 PO; +VALS160T30 PO; -VALS320T2 PO; +ZOLP5TAB2 PO
[2020-01-18] MEDS ORDERED: LIDOcaine 2% 5ml jelly ONE (09:05)
== END 2020-01-18 09:50 | disposition home or self-care (01) ==
LOC: WOUND CARE 08:20
PROVIDERS: ATTEND Nurse Practitioner
DX: E11.621 Type 2 diabetes mellitus with foot ulcer (principal); L97.521 Non-pressure chronic ulcer of other part of left foot limited to breakdown of skin; L84 Corns and callosities; I70.235 Atherosclerosis of native arteries of right leg with ulceration of other part of foot; L97.512 Non-pressure chronic ulcer of other part of right foot with fat layer exposed; E11.22 Type 2 diabetes mellitus with diabetic chronic kidney disease; I13.0 Hypertensive heart and chronic kidney disease with heart failure and stage 1 through stage 4 chronic kidney disease, or unspecified chronic kidney disease; N18.3 Chronic kidney disease, stage 3 (moderate); I50.9 Heart failure, unspecified; E11.51 Type 2 diabetes mellitus with diabetic peripheral angiopathy without gangrene; E11.42 Type 2 diabetes mellitus with diabetic polyneuropathy; E11.65 Type 2 diabetes mellitus with hyperglycemia; I25.10 Atherosclerotic heart disease of native coronary artery without angina pectoris; G89.4 Chronic pain syndrome; I25.2 Old myocardial infarction; E78.5 Hyperlipidemia, unspecified; I48.0 Paroxysmal atrial fibrillation; M19.90 Unspecified osteoarthritis, unspecified site; Z95.5 Presence of coronary angioplasty implant and graft; Z95.1 Presence of aortocoronary bypass graft
CPT/HCPCS: 36416; 82948; 97597